=== PATIENT | male | born 1950 | race Caucasian/White ===

== ENCOUNTER 2017-05-25 12:19 | Emergency (ER) | payer MEDICARE, OTHER ==
[2017-05-25 13:56] VITALS: BP 143/87
[2017-05-25] MEDS ORDERED: Ketorolac 60 MG/2 ML SDV IM ONE (14:42)
--- NOTE | 2017-05-25 14:43 | EDM.PDOC ---
ED HPI GENERAL MEDICAL PROBLEM - General Chief Complaint: Lower Extremity Injury/Pain Stated Complaint: RT KNEE PAIN Time Seen by Provider: 05/25/17 14:37 Source of Information: Reports: Patient, Family, RN Notes Reviewed History Limitations: Reports: No Limitations - History of Present Illness INITIAL COMMENTS - FREE TEXT/NARRATIVE: 67-year-old gentleman presents to the emergency department day complaint of right knee pain, he states he injured himself at work a couple of days ago while pushing some chair wax now is experiencing pain on the medial aspect of the knee. Right Knee Pain Score (Numeric/FACES): 8 - Related Data Allergies Allergy/AdvReac Type Severity Reaction Status Date / Time No Known Allergies Allergy Verified 05/25/17 14:18 Home Meds: Home Meds NK [No Known Home Meds] 05/12/14 [History] Past Medical History - Past Surgical History GI Surgical History: Reports: Appendectomy Social & Family History - Family History Family Medical History: Noncontributory Cardiac: Reports: [place] - Tobacco Use Smoking Status *Q: Unknown Ever Smoked Years of Tobacco use: 50 Packs/Tins Daily: 1 Used Tobacco, but Quit: No Second Hand Smoke Exposure: Yes - Alcohol Use Days Per Week of Alcohol Use: 0 - Recreational Drug Use Recreational Drug Use: Yes Drug Use in Last 12 Months: Yes Recreational Drug Use Frequency: Rarely Review of Systems - Review of Systems Review Of Systems: See Below Musculoskeletal: Reports: Joint Pain (Knee pain) Skin: Reports: No Symptoms Neurological: Reports: No Symptoms ED EXAM, GENERAL - Physical Exam Exam: See Below Free Text/Narrative:: Examination of the right knee I don't appreciate any erythema is no edema there is no deformity noted he is exquisitely tender along the medial aspect no tenderness along the joint line lateral aspect. Does not tolerate a Lilia's or anterior drawer maneuver he did ambulate into the room Exam Limited By: No Limitations General Appearance: Alert, WD/WN, No Apparent Distress Course - Vital Signs Last Recorded V/S: Last Vital Signs Temp 94.5 F L 05/25/17 14:17 Pulse 60 05/25/17 14:17 Resp 18 05/25/17 14:17 BP 143/87 H 05/25/17 14:17 Pulse Ox 97 05/25/17 14:17 - Orders/Labs/Meds Orders: Active Orders 24 hr Category Date Time Status Knee 3V Rt [CR] Stat Exams 05/25/17 14:42 Taken DME for Discharge [COMM] Per Unit Routine Oth 05/25/17 15:15 Ordered Meds: Medications Discontinued Medications Generic Name Dose Route Start Last Admin Trade Name Carmen PRN Reason Stop Dose Admin Ketorolac Tromethamine 60 mg 05/25/17 14:42 05/25/17 15:00 Toradol IM 05/25/17 14:43 60 mg ONETIME ONE Administration Departure - Departure Time of Disposition: 15:20 Disposition: Home, Self-Care 01 Condition: Good Clinical Impression: Right knee pain Qualifiers: Chronicity: acute Qualified Code(s): M25.561 - Pain in right knee - Discharge Information Referrals: PCP,None [Primary Care Provider] - Forms: ED Department Discharge Additional Instructions: Use ibuprofen for baseline pain control, use hydrocodone as needed for breakthrough pain, continue to use the knee immobilizer and crutches for comfort , please report to the orthopedic clinic for follow-up - My Orders Last 24 Hours: My Active Orders 05/25/17 14:42 Knee 3V Rt [CR] Stat 05/25/17 15:15 DME for Discharge [COMM] Per Unit Routine - Assessment/Plan Last 24 Hours: My Active Orders 05/25/17 14:42 Knee 3V Rt [CR] Stat 05/25/17 15:15 DME for Discharge [COMM] Per Unit Routine Plan: Assessment Acuity = acute Site and laterality = right knee pain Etiology = secondary to trauma Manifestations = none Location of injury = work Lab values = knee x-ray I did review films myself I cannot appreciate any acute process, the official read from radiology is pending Plan He is placed in the immobilizer and crutches hydrocodone 5/325 one tablet by mouth every 8 hours as needed for pain consultation set up with orthopedics This note was dictated using [employer] voice recognition software please call with any questions on syntax or olive.
--- NOTE | 2017-05-26 09:49 | CR ---
Effusion or synovitis right knee. No evidence for fracture.
== END 2017-05-25 15:57 | disposition home or self-care (01) ==
LOC: JP.ED 12:19
DX: M25.561 Pain in right knee (principal)
CPT/HCPCS: 73562; 96372; 99284; J1885

== ENCOUNTER 2019-09-22 10:59 | Emergency (ER) | payer BC, MEDICARE ==
[2019-09-22 11:19] VITALS: BP 135/81; PULSE 79
[2019-09-22] MEDS ORDERED: oxyCODONE 5 MG Tab PO ONE (11:45)
[2019-09-22] MEDS ORDERED: Albuterol/Ipratropium 3.0-0.5 MG/3 ML Neb Soln NEB ONE (11:45)
--- NOTE | 2019-09-22 11:51 | EDM.PDOC ---
ED HPI GENERAL MEDICAL PROBLEM - General Chief Complaint: Respiratory Problem Stated Complaint: CHEST COLD, PAIN RT SIDE Time Seen by Provider: 09/22/19 11:45 Source of Information: Reports: Patient - History of Present Illness INITIAL COMMENTS - FREE TEXT/NARRATIVE: Thang is a 69 year old male, presents to the ED today with productive frequent cough, mild sob and RLQ pain with coughing only, progressive for the last few days, unrelieved with aspirin. Patient denies any fever, works at [employer], temperature is checked twice daily there. Patient denies any hemoptysis. Patient is a smoker, 1 pack plus per day, he also smokes marijuana. Patient denies any vomiting/diarrhea. Patient denies any COPD diagnosis. He does not use inhalers or nebulizers at home. Patient has hx of appendectomy. Onset: Gradual Duration: Day(s): (5) - Related Data Allergies Allergy/AdvReac Type Severity Reaction Status Date / Time No Known Allergies Allergy Verified 09/22/19 11:19 Home Meds: Home Meds NK [No Known Home Meds] 09/22/19 [History] Past Medical History HEENT History: Reports: Impaired Vision Gastrointestinal History: Reports: None Genitourinary History: Reports: None Musculoskeletal History: Reports: Other (See Below) Other Musculoskeletal History: right knee pain - Past Surgical History Head Surgeries/Procedures: Reports: None HEENT Surgical History: Reports: Tonsillectomy GI Surgical History: Reports: Appendectomy Musculoskeletal Surgical History: Reports: None Social & Family History - Family History Family Medical History: Noncontributory Cardiac: Reports: [place] - Tobacco Use Smoking Status *Q: Current Every Day Smoker Years of Tobacco use: 50 Packs/Tins Daily: 1 Used Tobacco, but Quit: No Second Hand Smoke Exposure: Yes - Caffeine Use Caffeine Use: Reports: Coffee - Recreational Drug Use Recreational Drug Use: Yes Drug Use in Last 12 Months: Yes Recreational Drug Type: Reports: Marijuana/Hashish Recreational Drug Use Frequency: Daily ED ROS GENERAL - Review of Systems Review Of Systems: Comprehensive ROS is negative, except as noted in HPI. ED EXAM, GENERAL - Physical Exam Exam: See Below Exam Limited By: No Limitations General Appearance: Alert, WD/WN, No Apparent Distress Throat/Mouth: Normal Inspection Head: Atraumatic Neck: Normal Inspection, Supple Respiratory/Chest: Other (rhonchi right LL, expiratory wheeze upper left) Cardiovascular: Normal Peripheral Pulses, Regular Rate, Rhythm GI/Abdominal: Normal Bowel Sounds, Soft, Tender (RLQ with deep palpation, patient gaurding with coughing, denies pain otherwise) Back Exam: Normal Inspection, Other (right sided hematoma, approx 4 cm in diameter) Neurological: Alert Psychiatric: Normal Affect Skin Exam: Warm, Dry, Ecchymosis (right side) Lymphatic: No Adenopathy Course - Vital Signs Last Recorded V/S: Last Vital Signs Temp 37.2 C 09/22/19 11:20 Pulse 79 09/22/19 11:20 Resp 15 09/22/19 11:20 BP 135/81 09/22/19 11:20 Pulse Ox 98 09/22/19 11:20 Thang is a 69 year old male, presents to the ED today with c/o productive cough, right lower abdominal pain, started with coughing, no pain otherwise and has had appendectomy. Patient denies fever, arrives here hemodynamically stable, afebrile, no hypoxia. Rhonchi and wheezing on exam. Bruising noted to right lower side, patient denies any known injury, he is quite thin, this bruising in not in related to where pain is in RLQ with coughing, likely the RLQ pain is a muscle strain. Patient given DuoNeb here with a dose of Oxycodone. CXR obtained. No acute infiltrate, hyperinflated lungs consistent with emphysema. Likely undiagnosed COPD, patient will be started on doxycycline for acute bronchitis/COPD flare, albuterol inhaler and oxycodone for abdominal muscle strain. Patient encouraged to quit smoking. Narcotic safety and side effects discussed in detail as well as reasons to return to the ED. Patient agreeable to plan of care and discharged in stable condition. - Orders/Labs/Meds Orders: Active Orders 24 hr Category Date Time Status RT Aerosol Therapy [RC] ASDIRECTED Care 09/22/19 11:45 Active Chest 2V [CR] Stat Exams 09/22/19 11:45 Taken Meds: Medications Discontinued Medications Generic Name Dose Route Start Last Admin Trade Name Freq PRN Reason Stop Dose Admin Albuterol/Ipratropium 3 ml 09/22/19 11:45 09/22/19 12:23 Duoneb 3.0-0.5 Mg/3 Ml NEB 09/22/19 11:46 3 ml ONETIME ONE Administration Oxycodone HCl 10 mg 09/22/19 11:45 09/22/19 12:22 Oxycodone PO 09/22/19 11:46 10 mg ONETIME ONE Administration Departure - Departure Time of Disposition: 13:30 Disposition: Home, Self-Care 01 Condition: Good Clinical Impression: Wheezing, Muscle strain Acute bronchitis Qualifiers: Bronchitis organism: unspecified organism Qualified Code(s): J20.9 - Acute bronchitis, unspecified - Discharge Information Instructions: How to Use a Metered Dose Inhaler, Acute Bronchitis, Adult, Muscle Strain, [id number] Referrals: PCP,None [Primary Care Provider] - Forms: ED Department Discharge Additional Instructions: Take antibiotics as prescribed. Stop smoking Inhaler for wheezing and shortness of breath as needed as prescribed. Oxycodone for muscle/abdominal pain, this is a narcotic, do not drive if you take this or drink alcohol. it may also cause constipation so you may need to take a stool softener such as colace which can be found over the counter. Return with any worsening symptoms, fever, shortness of breath not relieved with inhaler. Follow up with your primary care provider in the next week for re-check Sepsis Event Note (ED) - Evaluation Sepsis Screening Result: No Definite Risk - Focused Exam Vital Signs: Vital Signs Temp Pulse Resp BP Pulse Ox 09/22/19 11:20 37.2 C 79 15 135/81 98 09/22/19 11:18 37.2 C 79 15 135/81 98 - My Orders Last 24 Hours: My Active Orders 09/22/19 11:45 RT Aerosol Therapy [RC] ASDIRECTED Chest 2V [CR] Stat - Assessment/Plan Last 24 Hours: My Active Orders 09/22/19 11:45 RT Aerosol Therapy [RC] ASDIRECTED Chest 2V [CR] Stat
--- NOTE | 2019-09-22 13:52 | CR ---
CHEST: 2 view CLINICAL HISTORY:Cough COMPARISON:2007 FINDINGS: The heart size, pulmonary vascularity and hilar structures are normal. No infiltrate effusion or pneumothorax is seen. Lungs are emphysematous. There are atherosclerotic changes in the aorta. IMPRESSION: No acute cardiopulmonary process. Diffuse emphysematous changes
== END 2019-09-22 13:19 | disposition home or self-care (01) ==
LOC: JP.ED 10:59
DX: J20.9 Acute bronchitis, unspecified (principal); S39.011A Strain of muscle, fascia and tendon of abdomen, initial encounter; F17.210 Nicotine dependence, cigarettes, uncomplicated; X58.XXXA Exposure to other specified factors, initial encounter
CPT/HCPCS: 71046; 94640; 99284; A9270; J7620-GY

== ENCOUNTER 2024-11-30 12:23 | Emergency (ER) | payer BC, MEDICARE ==
[2024-11-30 12:39] LABS: BASOPHILS ABSOLUTE AUTO 0.04 K/uL (0.00-0.10); BASOPHILS PERCENT AUTO 0.6 % (0.1-1.3); EOSINOPHILS ABSOLUTE AUTO 0.20 K/uL (0.00-0.40); EOSINOPHILS PERCENT AUTO 3.2 % (0.0-5.4); IMMATURE GRAN PERCENT AUTO 0.2 % (0.0-0.7); LYMPHOCYTES ABSOLUTE AUTO 1.79 K/uL (0.8-3.3); LYMPHOCYTES PERCENT AUTO 28.5 % (11.4-47.7); MONOCYTES ABSOLUTE AUTO 0.61 K/uL (0.20-0.90); MONOCYTES PERCENT AUTO 9.7 % (3.3-12.6); NEUTROPHILS ABSOLUTE AUTO 3.64 K/uL (1.0-7.6); NEUTROPHILS PERCENT AUTO 57.8 % (40.0-78.1); PLATELET COUNT,PLT 218 K/uL (130-375); RED BLOOD CELL COUNT 3.98 M/uL (4.14-5.76); WHITE BLOOD CELL COUNT,WBC 6.3 K/uL (3.2-11.0)
[2024-11-30 12:42] LABS: IMMATURE GRAN ABSOLUTE AUTO 0.01 K/uL (0.00-0.23)
[2024-11-30] MEDS: Nitroglycerin 2% Oint 1 GM UD Packet TOP ONE (12:49)
[2024-11-30 13:03] LABS: A/G RATIO 1.1 (1.2-2.2); ALANINE AMINOTRANSFERASE,ALT 20 U/L (12-78); ASPARTATE AMNIOTRANSFERASE,AST 20 U/L (15-37); BILIRUBIN TOTAL 0.6 mg/dL (0.2-1.0); BLOOD UREA NITROGEN,BUN 12 mg/dL (7-18); CARBON DIOXIDE,CO2 33 mmol/L (21-32); CHLORIDE,CL 101 mmol/L (100-108); CREATININE 0.8 mg/dL (0.8-1.3); ESTIMATED GFR 94 mL/min (>60); GLUCOSE RANDOM 103 mg/dL (74-106); POTASSIUM,K 4.2 mmol/L (3.6-5.2); PROTEIN TOTAL,TP 7.2 g/dL (6.4-8.2); SODIUM,NA 137 mmol/L (140-148); TROPONIN I HIGH SENSITIVITY 9.9 pg/mL (<=60.3)
[2024-11-30 15:58] VITALS: BP 156/92; PULSE 59
[2024-11-30] MEDS: Sodium Chloride 0.9% 10 ML Syringe FLUSH PRN (16:07)
[2024-11-30] MEDS: Iopamidol 755 Mg/ML 100 ML Bottle IV SCH (16:07)
== END 2024-11-30 16:57 | disposition left against medical advice (07) ==
LOC: JP.ED 12:23
DX: I21.4 Non-ST elevation (NSTEMI) myocardial infarction (principal); Z90.49 Acquired absence of other specified parts of digestive tract
CPT/HCPCS: 36415; 71045; 71275; 80053; 84484; 85025; 85379; 93010; 99285; 99291; A9270; Q9967